=== PATIENT | female | born 1950 | race Caucasian/White ===

== ENCOUNTER 2016-11-14 11:12 | Emergency (ER) | payer BC ==
--- NOTE | 2016-11-14 12:40 | UC ---
Lower Extremity/Ankle HPI - HPI Summary HPI Summary: trip and fall two days ago directly onto left knee. no know twisting injury. - History of Current Complaint Stated Complaint: LEFT KNEE INJURY Time Seen by Provider: 11/14/16 12:31 Hx Obtained From: Patient ?: No Onset/Duration: Sudden Onset, Lasting Days Severity Initially: Moderate Severity Currently: Moderate Aggravating Factor(s): Standing, Ambulation Alleviating Factor(s): Rest Able to Bear Weight: No - Risk Factors Gout Risk Factors: Age Over 40 - Allergies/Home Medications Allergies/Adverse Reactions: Allergies Allergy/AdvReac Type Severity Reaction Status Date / Time No Known Allergies Allergy Verified 11/14/16 12:59 PMH/Surg Hx/FS Hx/Imm Hx Endocrine History Of: Denies: Diabetes, Thyroid Disease Cardiovascular History Of: Denies: Cardiac Disorders, Hypertension Respiratory History Of: Denies: COPD, Asthma GI/ History Of: Denies: Ulcer Cancer History Of: Denies: Breast Cancer - Surgical History Surgical History: Yes Surgery Procedure, Year, and Place: pilonidal cyst. shoulder surgery - see above - Family History Known Family History: Positive: Other - no related orthopedic history. - Social History Substance Use Type: None Review of Systems All Other Systems Reviewed And Are Negative: Yes Physical Exam Triage Information Reviewed: Yes Appearance: Well-Appearing, Well-Nourished Vital Signs Reviewed: Yes Eye Exam: Normal ENT Exam: Normal Dental Exam: Normal Neck exam: Normal Respiratory Exam: Normal Cardiovascular Exam: Normal Abdominal Exam: Normal Musculoskeletal Exam: Other - L knee diffuse tenderness and bruising about the lower medial knee. NO joint instability with valgus and varus stress. she is able to extend leg and knee against gravity and some resistence. Lower Extremity Course/Dx - Course Course Of Treatment: Direct impact from standing height. No twisting. she has trouble with full extension. There is no fracture. With her degree of pain and loss of rom, it is difficult to assess for cartilage injury or ligamentous instability. she will f/u with ortho if needed. Supportive care for now. - Differential Dx/Diagnosis Provider Diagnoses: left knee trauma. Fall. left knee contusion Discharge - Discharge Plan Condition: Good Disposition: HOME Prescriptions: traMADol TAB* [Ultram*] 50 mg PO TID PRN #20 tab MDD 3 PRN Reason: Pain Patient Education Materials: Knee Pain (ED) Referrals: Dino Prescott MD [Medical Doctor] - Ethel Resendez MD [Primary Care Provider] -
[2016-11-14 13:25] VITALS: BP 131/87
--- NOTE | 2016-11-14 13:46 | RAD ---
INDICATION: Left knee injury. TECHNIQUE: 3 views of the left knee were obtained. The exam is limited, the patient was unable to be positioned for the standard views. FINDINGS: There is mild lateral subluxation of the patella. No fracture or joint effusion is seen. 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 IMPRESSION: NO EVIDENCE FOR FRACTURE, IF THE PATIENT'S SYMPTOMS PERSIST CONSIDER MR IMAGING.
== END 2016-11-14 13:40 | disposition home or self-care (01) ==
LOC: UCCORT 11:12
DX: S80.02XA Contusion of left knee, initial encounter (principal); W01.0XXA Fall on same level from slipping, tripping and stumbling without subsequent striking against object, initial encounter; Y93.9 Activity, unspecified; Y92.9 Unspecified place or not applicable
CPT/HCPCS: 99211; G0463

== ENCOUNTER 2017-07-31 10:52 | Emergency (ER) | payer BC ==
[2017-07-31 11:10] VITALS: BP 135/81
--- NOTE | 2017-07-31 11:21 | UC ---
Respiratory Complaint HPI - HPI Summary HPI Summary: Sudden onset of body aches cough cold, congestion for 5 days - History of Current Complaint Chief Complaint: UCRespiratory Stated Complaint: COUGH CONGESTION Time Seen by Provider: 07/31/17 11:13 Hx Obtained From: Patient ?: No Onset/Duration: Sudden Onset, Lasting Days - 5, Still Present Timing: Constant Severity Initially: Moderate Severity Currently: Moderate Pain Intensity: 5 Pain Scale Used: 0-10 Numeric Character: Cough: Nonproductive Aggravating Factors: Nothing Alleviating Factors: Nothing Associated Signs And Symptoms: Positive: Fever, Chills, Pleuritic Chest Pain, URI, Nasal Congestion, Sinus Discomfort - Allergies/Home Medications Allergies/Adverse Reactions: Allergies Allergy/AdvReac Type Severity Reaction Status Date / Time No Known Allergies Allergy Verified 07/31/17 11:10 PMH/Surg Hx/FS Hx/Imm Hx Previously Healthy: Yes - Surgical History Surgical History: Yes Surgery Procedure, Year, and Place: pilonidal cyst [facility] SPINE 1975. BILATERAL shoulder surgery CLEAN UP SCAR TISSUE - Family History Known Family History: Positive: Other - no related orthopedic history. - Social History Occupation: Employed Part-time Lives: With Family Alcohol Use: Occasionally Substance Use Type: None Smoking Status (MU): Never Smoked Tobacco - Immunization History Most Recent Influenza Vaccination: Jun 2017 Review of Systems Constitutional: Fever, Chills, Fatigue Skin: Negative Eyes: Negative ENT: Nasal Discharge Respiratory: Cough Cardiovascular: Negative Gastrointestinal: Negative Genitourinary: Negative Motor: Negative Neurovascular: Negative Musculoskeletal: Arthralgia, Myalgia Neurological: Headache Psychological: Negative Is Patient Immunocompromised?: No All Other Systems Reviewed And Are Negative: Yes Physical Exam Triage Information Reviewed: Yes Appearance: No Pain Distress, Well-Nourished, Ill-Appearing - mild Vital Signs: Initial Vital Signs Temp 97.7 F 07/31/17 11:03 Pulse 82 07/31/17 11:03 Resp 15 07/31/17 11:03 BP 135/81 07/31/17 11:03 Pulse Ox 100 07/31/17 11:03 Vital Signs Reviewed: Yes Eye Exam: Normal Eyes: Positive: Conjunctiva Clear ENT Exam: Normal ENT: Positive: Normal ENT inspection, Hearing grossly normal, Pharynx normal, Uvula midline. Negative: Nasal congestion, Nasal drainage, TMs normal, Tonsillar swelling, Tonsillar exudate, Trismus, Muffled voice, Hoarse voice, Dental tenderness, Sinus tenderness Neck exam: Normal Neck: Positive: Supple, Nontender, No Lymphadenopathy Respiratory Exam: Normal Respiratory: Positive: Chest non-tender, Lungs clear, Normal breath sounds, No respiratory distress, No accessory muscle use Cardiovascular Exam: Normal Cardiovascular: Positive: RRR, No Murmur, Pulses Normal, Brisk Capillary Refill Musculoskeletal Exam: Normal Musculoskeletal: Positive: Strength Intact, ROM Intact, No Edema Neurological Exam: Normal Neurological: Positive: Alert, Muscle Tone Normal Psychological Exam: Normal Skin Exam: Normal UC Diagnostic Evaluation - Laboratory O2 Sat by Pulse Oximetry: 100 Diagnostic Studies Comment: Influenza A (+) Respiratory Course/Dx - Course Course Of Treatment: Rest increase fluids---patient eduction regarding Tamiflu provided--patient chose not to take the medication, follow with pcp prn - Differential Dx/Diagnosis Provider Diagnoses: Influenza A Discharge - Discharge Plan Condition: Stable Disposition: HOME Prescriptions: Guaifenesin-Codeine [Guaiatussin AC] 5 - 10 ml PO QID PRN #90 ml MDD 40 ml PRN Reason: Cough Patient Education Materials: Influenza (ED) Referrals: Ethel Resendez MD [Primary Care Provider] - If Needed
== END 2017-07-31 12:04 | disposition home or self-care (01) ==
LOC: UCEAST 10:52
DX: J11.1 Influenza due to unidentified influenza virus with other respiratory manifestations (principal)
CPT/HCPCS: 87502; 99212; G0463

== ENCOUNTER 2018-12-25 12:46 | Emergency (ER) | payer BC, OTHER ==
[2018-12-25 12:54] VITALS: BP 145/80
--- NOTE | 2018-12-25 13:22 | UC ---
Dizzy HPI HPI Summary: She got sent in by her employment nurse. She tells me that she's been having sinus congestion worse for the last 3 days. If this is something that she has frequently and she has tried many [id number] counter and prescription decongestants as well as antibiotics. She can constantly has a problem but in the last 3 days she feels worse. She has a frontal feeling of fullness and congestion. She also states that her balance is affected some which is something that happens to her also. She's been getting her blood pressure checked at work and some running high for her for several days also. She thinks she might of been a little bit dizzy yesterday but it is worse today. She had a poor night as the cat slept with her - History Of Current Complaint Chief Complaint: UCRespiratory Stated Complaint: DIZZY BP ISSUE SINUS ISSUE Time Seen by Provider: 12/25/18 13:06 Hx Obtained From: Patient Onset/Duration: Gradual Onset Timing: Constant Severity Initially: Mild Severity Currently: Moderate Pain Intensity: 0 Character: Unable To Describe Aggravating Factor(s): Nothing Alleviating Factor(s): Nothing Associated Signs And Symptoms: Negative: Nausea, Diaphoresis, Tinnitus, Chest Pain, SOB, Palpitations, Unsteady Gait, Visual Changes - Allergies/Home Medications Allergies/Adverse Reactions: Allergies Allergy/AdvReac Type Severity Reaction Status Date / Time No Known Allergies Allergy Verified 12/25/18 12:54 PMH/Surg Hx/FS Hx/Imm Hx Previously Healthy: Yes - Surgical History Surgical History: Yes Surgery Procedure, Year, and Place: pilonidal cyst B[facility] OF SPINE 1975. BILATERAL shoulder surgery CLEAN UP SCAR TISSUE - Family History Known Family History: Positive: Other - no related orthopedic history. - Social History Alcohol Use: Occasionally Substance Use Type: None Smoking Status (MU): Never Smoked Tobacco - Immunization History Most Recent Influenza Vaccination: Jun 2017 Review of Systems All Other Systems Reviewed And Are Negative: Yes Constitutional: Positive: Negative ENT: Positive: Nasal Discharge, Sinus Congestion, Sinus Pain/Tenderness Cardiovascular: Positive: Negative Neurovascular: Positive: Negative Musculoskeletal: Positive: Negative Physical Exam - Summary Physical Exam Summary: She is nontoxic in appearance with stable vital signs. Triage Information Reviewed: Yes Appearance: Well-Appearing Vital Signs: Initial Vital Signs Temp 98.4 F 12/25/18 12:52 Pulse 81 12/25/18 12:52 Resp 18 12/25/18 12:52 BP 145/80 12/25/18 12:52 Pulse Ox 100 12/25/18 12:52 Vital Signs Reviewed: Yes Eye Exam: Normal Eyes: Positive: Conjunctiva Clear ENT: Positive: Nasal congestion, Nasal drainage - Her sinuses transilluminate somewhat decreased. Neck exam: Normal Neck: Positive: No Lymphadenopathy Respiratory Exam: Normal Cardiovascular Exam: Normal Neurological Exam: Normal - She has an NIH stroke scale of 0. Dizzy Course/Dx - Course Course Of Treatment: She has a prescription for antibiotics for sinusitis at home. She does not want to take any kind of decongestants as they bother her. I asked her how I could help as she reassures me that her symptoms are all things that she's had before and she believes is all related to sinuses. She doesn't think I can and relates that she can only came because the nurse at work wanted her to. I can' t 100% guarantee that this doesn't represent a posterior stroke event however she is very reassuring that she has had all these symptoms before with her sinus infections and she believes that is what is going on. - Differential Dx/Diagnosis Provider Diagnosis: Sinusitis Discharge - Sign-Out/Discharge Documenting (check all that apply): Patient Departure All imaging exams completed and their final reports reviewed: No Studies - Discharge Plan Condition: Stable Disposition: HOME Patient Education Materials: Sinusitis (ED) Referrals: Ethel Resendez MD [Primary Care Provider] - - Billing Disposition and Condition Condition: STABLE Disposition: Home
== END 2018-12-25 13:28 | disposition home or self-care (01) ==
LOC: UCEAST 12:46
DX: J32.9 Chronic sinusitis, unspecified (principal)
CPT/HCPCS: 99211; G0463

== ENCOUNTER 2019-05-08 19:32 | Emergency (ER) | payer BC ==
[2019-05-08 19:49] VITALS: BP 140/82
--- NOTE | 2019-05-08 20:01 | UC ---
Skin Complaint HPI - HPI Summary HPI Summary: Patient presented to urgent care O2 complains. One, patient states starting on 05/05 she noticed a red area above her right eyebrow. Patient states she thought was a spider bite so she cleaned it with alcohol. Patient states since that time is because become more red. Patient did have the development of 2 small blisters. Patient states she is also noticed that she feels very tired and that she has some itching in her scalp. Patient did notice also the development of a lump anterior to her right ear on the same day of the necks. Patient took Motrin twice. No fevers or chills. Patient denies any vision changes. No eye pain. No nausea or vomiting. Separately, patient's concern she might have getting a sinus infection. Patient states she feels chronic congested. Postnasal drip. Sore throat. No nausea or vomiting. No sick contacts. Patient recently traveled to [place] and returned today. Patient is not immune compromise. Neck shingles vaccine. Patient's medications reviewed this visit. - History of Current Complaint Chief Complaint: UCGeneralIllness Time Seen by Provider: 05/08/19 19:52 Stated Complaint: RASH Hx Obtained From: Patient Hx Last Menstrual Period: N/A Onset/Duration: Gradual Onset Skin Exposure Onset/Duration: Days Ago Onset Severity: Mild Pain Intensity: 0 - Allergy/Home Medications Allergies/Adverse Reactions: Allergies Allergy/AdvReac Type Severity Reaction Status Date / Time No Known Allergies Allergy Verified 05/08/19 19:48 Home Medications: Home Medications Ibuprofen TAB* [Advil TAB*] 200 mg PO ONCE 05/08/19 [History Confirmed 05/08/19] PMH/Surg Hx/FS Hx/Imm Hx Previously Healthy: Yes - Surgical History Surgical History: Yes Surgery Procedure, Year, and Place: pilonidal cyst [facility] OF SPINE 1975. BILATERAL shoulder surgery CLEAN UP SCAR TISSUE - Family History Known Family History: Positive: Other - no related orthopedic history., Non- Contributory - Social History Occupation: Retired Lives: With Family Alcohol Use: Occasionally Substance Use Type: None Smoking Status (MU): Never Smoked Tobacco - Immunization History Most Recent Influenza Vaccination: Jun 2017 Review of Systems All Other Systems Reviewed And Are Negative: Yes Constitutional: Positive: Fatigue Skin: Positive: Other - Right facial rash ENT: Positive: Sinus Congestion Is Patient Immunocompromised?: No Physical Exam - Summary Physical Exam Summary: Vital Signs Reviewed: Yes A+Ox3, no distress Eyes: Conjunctiva Clear, ANNABELLE. EOM intact and full, no photophobia ENT: Hearing grossly normal TM x 2 clear, turbinate mildly inflammed + PND, mmoist, uvula midline, no exudate, no erythema Neck: Positive: Supple Respiratory: Positive: No respiratory distress, No accessory muscle use + CTA throughout no w/r Cardiovascular: RRR nl s1, s2 no m/r CBT <2 sec abd soft + BS nt/nd no guarding, no distension Musculoskeletal Exam: OSWALD x 4 without difficulty Strength Intact, ROM Intact Neurological: Positive: Alert, + sensation throughout Psychological: Positive: Normal Response To examiner Skin: Positive: right upper frontal area, superior to eyebrow - pt with 2x2cm area of erythema. small blister in center, mild discomfort with palpation. Pt with 2 small blister lesions in hairline Pt with erythema posterior to right ear - non tender, no drainage Pt with palpable, mibile non tender anterior ear - suspect LA no ramos sign Vital Signs: Initial Vital Signs Temp 97.8 F 05/08/19 19:42 Pulse 97 05/08/19 19:42 Resp 16 05/08/19 19:42 BP 140/82 05/08/19 19:42 Pulse Ox 97 05/08/19 19:42 Course/Dx - Course Course Of Treatment: Patient presents to urgent care with rash that developed 3 days ago on her right frontal area. Patient states mild discomfort. Patient with the development of a small blister. Patient states she feels fatigued. Patient also concerned that she may have a sinus infection and she's got sinus congestion as well as nasal drip. On exam vital signs are stable. Patient does have lesion above her right eye as well as once her hairline concerned and suspicious for shingles. Turbinates are inflamed and boggy but no thick secretions. On discussion with patient regarding shingles and concerned given the V1 distribution. Recommend follow-up will start Valtrex for treatment of shingles. We will write for Flonase nasal spray. Patient reluctant to take oral prednisone. Patient will be given a prescription for antibiotic for her sinuses though not felt this time. Patient's time and Saturday until wanted something in case her symptoms worsen she supposed to fly. Did discuss with patient concern about seeing ophthalmology for her shingles. Patient given Dr. Astudillo's contact information she Keiko Morales visual effects editor [employer] application consultant em. Patient, Saturday. Alternatively patient was also given Dr. alves office as he frequently has had a morning appointment. Patient does have an eye doctor in estimate she can also call. Patient comfortable in agreement with plan. Strict return precautions discussed. Patient states understanding of any lesion on her nose or eye mandates that she sees ophthalmology by returning to emergency department. Encourage patient to take probiotics any yogurt to help with diarrhea and vaginal yeast slight elevation of BP - recommend pcp f/u - Diagnoses Provider Diagnosis: Shingles, Sinus congestion Discharge ED - Sign-Out/Discharge Documenting (check all that apply): Patient Departure All imaging exams completed and their final reports reviewed: No Studies - Discharge Plan Condition: Stable Disposition: HOME Prescriptions: Azithromycin TAB* [Zithromax TAB (Z-KEN) 250 mg #6 tabs] 2 tab PO .TODAY, THEN 1 DAILY #1 ken Fluticasone NASAL SPRAY 50MCG* [Flonase NASAL SPRAY 50MCG*] 2 spray BOTH NARES DAILY #1 btl ValACYclovir (*) [Valtrex 1 GM(*)] 1 gm PO TID #21 tab Patient Education Materials: Shingles (ED), Rhinosinusitis (ED) Referrals: Ethel Resendez MD [Primary Care Provider] - René Astudillo MD [Medical Doctor] - Reinaldo Hernandez MD [Medical Doctor] - Additional Instructions: - Stay well hydrated. Drink plenty of non-alcoholic, non-caffinated beverages. - Alternate ibuprofen (Advil, Motrin) 600mg and Tylenol every 3 hours for pain or fever. Take with food. Do NOT take for more than 4-5 days. - These infections are spread by secretions - do NOT share eating or drinking utensils - clean items you share with other people such as cell phones, computer mouse, TV remote, computer tablets,etc. Once you have been antibiotics for 2 days, change your toothbrush and your pillowcase. - get plenty of restful sleep - okay to take over the counter decongestant and cough medication - use nasal spray as prescribed - contact your doctor or return with questions or concerns - eat yogurt or take probiotics while taking antibiotics to help decrease diarrhea and vaginal yeast infection -Take use nasal spray as prescribed -Take Valtrex (anti-viral medication) as prescribed - Okay to take Tylenol every 6 hours as needed - Contact and eye doctor (Dr. Briceño on Saturday, Dr. Hernandez tomorrow, or your eye doctor in [place]) on Saturday for an eye examination - this is VERY important. Divina ou develop eye pain, draiange or vision changes you should return to an emergency department - Your lesions may continue to develop over the next 10 days - this is normal. They should not spread to other areas of your body - Billing Disposition and Condition Condition: STABLE Disposition: Home
== END 2019-05-08 20:33 | disposition home or self-care (01) ==
LOC: UCCORT 19:32
DX: B02.9 Zoster without complications (principal); R09.89 Other specified symptoms and signs involving the circulatory and respiratory systems
CPT/HCPCS: 99212; G0463